=== PATIENT | female | born 1990 | race Two or more races ===

== ENCOUNTER → 2025-04-20 | Emergency (ER) | payer OTHER ==
[~2025-04-20] VITALS: Ht 167.6 cm; Wt 63.5 kg
[~2025-04-20] MED LIST: ACETAMINOPHEN 500 MG GEL..CAP PO ONE; ACETAMINOPHEN 500 MG GEL..CAP PO STA; PRENATE ELITE1 EAC2
[2025-04-21 02:03] LABS: BASO % 0.7 % (0.1-1.2); EOS # 0.07 (0.04-0.54); EOS % 0.7 % (0.7-7.0); LYMPH # 2.05 (1.18-3.74); LYMPH % 19.7 % (19.3-53.1); MEAN PLATELET VOLUME 10.50 fl (9.4-12.4); MONO # 0.77 (0.24-0.82); MONO % 7.4 % (4.7-12.5); NEUT # 7.41 (1.56-6.13); NEUT % 71.3 % (34.0-71.1); RED CELL DISTRIBUTION WIDTH 12.6 % (11.6-14.4)
[2025-04-21 02:07] LABS: INR 0.98
[2025-04-21 02:13] LABS: BUN CREA RATIO 28.0 (7.0-25.0); CREATININE SERUM 0.61 mg/dL (0.55-1.02); GFR 112.95; GLUCOSE FASTING 95.0 mg/dL (65-100); HCG QUANTITATIVE 387.0 mUI/mL (1-3); OSMOLALITY SERUM 283.0 MOSM/KG (275-295)
[2025-04-21 03:05] LABS: URINE APPEARANCE Clear; URINE BILIRRUBIN Negative (NEGATIVE); URINE BLOOD Large; URINE COLOR Yellow; URINE GLUCOSE Negative (NEGATIVE); URINE KETONE Negative (NEGATIVE); URINE LEUKOCYTE Negative; URINE NITRATE Negative; URINE PROTEIN Negative (NEGATIVE); URINE UROBILINOGEN 0.2 E.U./dl
[2025-04-21 03:08] LABS: URINE BACTERIA 120.0 uL (0.0-1933); URINE EPITHELIAL CELLS 2.6 uL (0.0-38.8); URINE RBC 825.6 uL (0.0-20.8); URINE WBC 3.0 uL (0.0-23.2)
[2025-04-21 03:29] LABS: URINE CAST 0.00 uL (0.0-1.40)
== END | disposition home or self-care (01) ==
LOC: ER 23:44
PROVIDERS: General Practice
DX: O20.0 Threatened abortion (principal); Z91.018 Allergy to other foods